=== PATIENT | male | born 1975 | race Caucasian/White ===

== ENCOUNTER 2022-07-12 20:09 | Emergency (ER) | payer OTHER, SELFPAY ==
--- NOTE | ~2022-07-12 | XR_ITS ---
EXAMINATION: XR CHEST CLINICAL INFORMATION: Shortness of breath COMPARISON: None TECHNIQUE: 2 views of the chest were obtained. FINDINGS: There is a 1.5 cm opacity projecting just below the anterior left rib and that I suspect is related to the rib, but a small mass cannot be excluded. Otherwise the exam is normal. No infiltrates or effusions are seen. The bony thorax is unremarkable. XR/XR chest 2V IMPRESSION: No acute intrathoracic disease. Question of left lung nodule versus rib lesion. CT scan could be performed for further evaluation. If old chest radiographs are available, these may be helpful
[2022-07-12 20:51] VITALS: BP 187/108; PULSE 82; RESP 20; TEMP 36.2; O2SAT 95; BMI 30.9
--- NOTE | 2022-07-12 20:56 | ED.SOB ---
HPI - SOB/Dyspnea General Chief Complaint: Dyspnea <Shyann Hardin MD - Last Filed: 07/12/22 21:00> Stated Complaint: SOB <Shyann Hardin MD - Last Filed: 07/12/22 21:00> Time Seen by Provider: 07/12/22 23:32 <Shyann Hardin MD - Last Filed: 07/12/22 21:00> Source: patient <Alejandro Melvin MD - Last Filed: 07/13/22 17:29> Mode of arrival: ambulatory <Alejandro Melvin MD - Last Filed: 07/13/22 17:29> Limitations: no limitations <Alejandro Melvin MD - Last Filed: 07/13/22 17:29> History of Present Illness HPI Narrative: Patient with history of asthma in complaining of cough wheezing since early today had the kids 2 days ago at home, they were sick also. No fever no chills cough is mostly dry with occasional mucoid phlegm no chest pain or palpitation patient's asthma is usually stable <Alejandro Melvin MD - Last Filed: 07/13/22 17:29> Related Data Home Medications: Previous Rx's Medication Instructions Recorded albuterol sulfate 90 mcg/actuation 2 puff inhalation Q4-6H PRN 07/12/22 aerosol inhaler (ProAir HFA) shortness of breath or wheezing #8.5 grams azithromycin 250 mg tablet 250 mg PO DAILY 4 days #4 tabs 07/12/22 (Zithromax) codeine 10 mg-guaifenesin 100 mg/5 10 ml PO Q6H PRN cough #237 mL 07/12/22 mL oral liquid prednisone 20 mg tablet 40 mg PO DAILY #10 tabs 07/12/22 <Shyann Hardin MD - Last Filed: 07/12/22 21:00> Allergies/Adverse Reactions: Allergies Allergy/AdvReac Type Severity Reaction Status Date / Time No Known Allergies Allergy Verified 07/12/22 20:54 <Shyann Hardin MD - Last Filed: 07/12/22 21:00> Review of Systems Review of Systems: Yes all other systems are reviewed and are negative <Alejandro Melvin MD - Last Filed: 07/13/22 17:29> [facility] Social History Social History: Social History Alcohol intake: current Alcohol intake frequency: holidays/special occasions only Smoked in Last 30 Days: No Use of substances other than those prescribed or required for medical reasons: No Advance Directives: No <Shyann Hardin MD - Last Filed: 07/12/22 21:00> Physical Exam Vital Signs: Vital Signs: Last Vital Signs Temp 98.5 F 07/12/22 23:32 Pulse 90 07/13/22 00:32 Resp 14 07/13/22 00:32 BP 145/80 H 07/13/22 00:32 Pulse Ox 98 07/13/22 00:32 O2 Del Method 07/13/22 00:32 BMI result Body Mass Index 30.9 <Shyann Hardin MD - Last Filed: 07/12/22 21:00> Vital Signs: Last Vital Signs Temp 98.5 F 07/12/22 23:32 Pulse 90 07/13/22 00:32 Resp 14 07/13/22 00:32 BP 145/80 H 07/13/22 00:32 Pulse Ox 98 07/13/22 00:32 O2 Del Method 07/13/22 00:32 BMI result Body Mass Index 30.9 <Alejandro Melvin MD - Last Filed: 07/13/22 17:29> Appearance: Alert. Oriented X3. No acute distress. Eyes: PERRLA, No Nystagmus ENT: Pharynx normal. Oral Mucosa moist Neck: Normal inspection. Neck supple. CVS: Normal heart rate and rhythm. Pulses normal. Respiratory: Bilateral wheezing Equal air entry bilateral, no rales Abdomen: Soft and nontender. Bowel sounds are present, no mass palpable, no CVA tenderness Skin: Skin warm and dry. Normal skin color. Normal skin turgor. Extremities: No lower extremity edema. No calf tenderness Neuro: Oriented X 3. <Alejandro Melvin MD - Last Filed: 07/13/22 17:29> Course Course Course Narrative: 46M with hx of asthma states SOB and chest discomfort since yesterday with positive sick contact from kids. Patient reports cough but no fevers, chills. VITAL SIGNS: Reviewed. GENERAL: Well developed, well nourished, in no acute distress. HEAD: Normocephalic/atraumatic EYES: PERRLA, EOMI EARS: Ext canals without abnormality OROPHARYNX: no oral lesions noted, posterior pharynx clear 959 NECK: Supple, no adenopathy LUNGS: Good inspiratory effort with expiratory wheeze and mild tachypnea. [id number]<95> CARDIOVASCULAR: Regular rate and rhythm without noted murmur ABDOMEN: Soft, non-tender, non-distended with bowel sounds. NEUROLOGIC: Alert and oriented x 4. 46M with suspected viral infection and mild asthma exacerbation, rec'd ventolin/prednisone/CXR/viral testing <Shyann Hardin MD - Last Filed: 07/12/22 21:00> Medications Administered Discontinued Medications Generic Name Dose Route Start Last Admin Trade Name Freq PRN Reason Stop Dose Admin Albuterol Sulfate 2 puff 07/12/22 20:56 07/12/22 21:00 Albuterol Sulfate 90 Mcg 8 Gm Inhaler INHALE 07/12/22 20:57 2 puff ONCE ONE Administration Azithromycin 500 mg 07/12/22 23:54 07/13/22 00:03 Azithromycin 500 Mg Tablet PO 07/12/22 23:55 500 mg ONCE ONE Administration Albuterol Sulfate 2.5 mg/ 0 mg 07/12/22 23:39 07/13/22 00:19 Albuterol/Ipratropium 3 ml INHALE 07/12/22 23:40 2.5 each ONCE ONE Administration Prednisone 50 mg 07/12/22 20:56 07/12/22 21:00 Prednisone 10 Mg Tablet PO 07/12/22 20:57 50 mg ONCE ONE Administration <Shyann Hardin MD - Last Filed: 07/12/22 21:00> Medications Administered Discontinued Medications Generic Name Dose Route Start Last Admin Trade Name Freq PRN Reason Stop Dose Admin Albuterol Sulfate 2 puff 07/12/22 20:56 07/12/22 21:00 Albuterol Sulfate 90 Mcg 8 Gm Inhaler INHALE 07/12/22 20:57 2 puff ONCE ONE Administration Azithromycin 500 mg 07/12/22 23:54 07/13/22 00:03 Azithromycin 500 Mg Tablet PO 07/12/22 23:55 500 mg ONCE ONE Administration Albuterol Sulfate 2.5 mg/ 0 mg 07/12/22 23:39 07/13/22 00:19 Albuterol/Ipratropium 3 ml INHALE 07/12/22 23:40 2.5 each ONCE ONE Administration Prednisone 50 mg 07/12/22 20:56 07/12/22 21:00 Prednisone 10 Mg Tablet PO 07/12/22 20:57 50 mg ONCE ONE Administration <Alejandro Melvin MD - Last Filed: 07/13/22 17:29> MDM - SOB/Dyspnea MDM Narrative Medical decision making narrative: Patient with acute bronchitis COVID, RSV, influenza negative chest x-ray negative for infiltrate will discharge patient home on prednisone advised to continue albuterol treatments at <Alejandro Melvin MD - Last Filed: 07/13/22 17:29> Lab Data Attestation: I reviewed the patient's lab results. <Alejandro Melvin MD - Last Filed: 07/13/22 17:29> Labs: Lab Results 07/12/22 Range/Units 20:56 Influenza Type A (PCR) NEGATIVE (Negative) Influenza Type B (PCR) NEGATIVE (Negative) RSV RNA Qual (PCR) NEGATIVE (Negative) SARS-CoV-2 RNA (RT-PCR) NEGATIVE (Negative) <Shyann Hardin MD - Last Filed: 07/12/22 21:00> Lab Results 07/12/22 Range/Units 20:56 Influenza Type A (PCR) NEGATIVE (Negative) Influenza Type B (PCR) NEGATIVE (Negative) RSV RNA Qual (PCR) NEGATIVE (Negative) SARS-CoV-2 RNA (RT-PCR) NEGATIVE (Negative) <Alejandro Melvin MD - Last Filed: 07/13/22 17:29> Discharge Plan Discharge Clinical Impression: Acute asthmatic bronchitis <Shyann Hardin MD - Last Filed: 07/12/22 21:00> Patient Disposition: Home, Self-Care <Shyann Hardin MD - Last Filed: 07/12/22 21:00> Instructions: Asthma (ED) <Shyann Hardin MD - Last Filed: 07/12/22 21:00> Additional Instructions: Use albuterol inhaler as advised Prednisone and cough drops as prescribed Antibiotic course as given <Shyann Hardin MD - Last Filed: 07/12/22 21:00> Prescriptions: New prednisone 20 mg tablet 40 mg PO DAILY Qty: 10 0RF codeine-guaifenesin 10-100 mg/5 mL liquid 10 ml PO Q6H PRN (Reason: cough) Qty: 237 0RF albuterol sulfate [ProAir HFA] 90 mcg/actuation HFA aerosol inhaler 2 puff inhalation Q4-6H PRN (Reason: shortness of breath or wheezing) Qty: 8.5 0RF azithromycin [Zithromax] 250 mg tablet 250 mg PO DAILY 4 Days Qty: 4 0RF Rx Instructions: start on day 2 of therapy <Shyann Hardin MD - Last Filed: 07/12/22 21:00> Interventions: ED Discharge Assessment Last Done: 07/13/22 00:35 <Shyann Hardin MD - Last Filed: 07/12/22 21:00> Discharge Date/Time: 07/13/22 00:36 <Shyann Hardin MD - Last Filed: 07/12/22 21:00>
[2022-07-12] MEDS: predniSONE 10 MG TABLET 50 MG PO (21:00)
[2022-07-12] MEDS: Albuterol Sulfate 90 MCG 8 GM INHALER 2 PUFF INHALE (21:00)
[2022-07-12 21:37] LABS: Influenza A PCR NEGATIVE (Negative); Influenza B PCR NEGATIVE (Negative); Resp Syncy Virus RNA Qual PCR NEGATIVE (Negative); SARS COV2 PCR INHOUSE NEGATIVE (Negative)
[2022-07-12 22:53] VITALS: BP 160/96; PULSE 74; RESP 18; TEMP 36.3; O2SAT 99
--- NOTE | 2022-07-12 23:29 | PC.NURSE ---
Pt. on hospital monitor at this time
[2022-07-12 23:32] VITALS: BP 165/104; PULSE 80; RESP 16; TEMP 36.9; O2SAT 98
[2022-07-13 00:02] VITALS: BP 123/96; PULSE 76; RESP 16; O2SAT 97
[2022-07-13] MEDS: Azithromycin 500 MG TABLET PO (00:03)
--- NOTE | 2022-07-13 00:15 | PC.NURSE ---
Pt. up for discharge. Still pending respiratory tx. Respiratory notified and therapist is on her way at this time.
[2022-07-13] MEDS: Albuterol Sulfate 2.5 MG, Albuterol/Iprat 2.5/0.5MG 3 ML 3 ML INHALE (00:19)
[2022-07-13 00:20] VITALS: PULSE 80; RESP 16; O2SAT 98
[2022-07-13 00:32] VITALS: BP 145/80; PULSE 90; RESP 14; O2SAT 98
== END 2022-07-13 00:36 | disposition home or self-care (01) ==
PROVIDERS: Student in an Organized Health Care Education/Training Program; Emergency Provider Internal Medicine
DX: R06.02 Shortness of breath (principal); J45.909 Unspecified asthma, uncomplicated; Z20.822 Contact with and (suspected) exposure to COVID-19; Z79.899 Other long term (current) drug therapy
CPT/HCPCS: 0241U; 71046; 94640; 94664; 99284